=== PATIENT | male | born 1980 | race Hispanic/Latino ===

== ENCOUNTER 2017-02-10 15:29 | Emergency (ER) | payer BC ==
[2017-02-10] MEDS ORDERED: Oxycodone/Acetaminophen 5/325 mg Tab PO STA (16:25)
[2017-02-10 16:37] VITALS: RESP 18; O2SAT 99; BMI 22.3
[2017-02-10 17:03] LABS: URINE BILIRUBIN NEGATIVE (NEGATIVE); URINE BLOOD NEGATIVE (NEGATIVE); URINE COLOR Yellow (YELLOW); URINE GLUCOSE (UA) NORMAL (Normal); URINE KETONE NEGATIVE (NEGATIVE); URINE LEUKOCYTE ESTERASE NEG Leu/uL (Negative); URINE PROTEIN NEGATIVE (NEGATIVE); URINE UROBILINOGEN NORMAL mg/dL (0.2-1.0); WBC URINE < 1 /hpf (0-5)
--- NOTE | 2017-02-10 17:40 | RAD ---
HISTORY: pain COMPARISON: None available. TECHNIQUE: Chest PA and lateral FINDINGS: LUNGS: No focal consolidation. Please note that chest x-ray has limited sensitivity for the detection of pulmonary masses. PLEURA: No significant pleural effusion identified. No definite pneumothorax . CARDIOVASCULAR: The cardiomediastinal silhouette appears within normal limits of size. OSSEOUS STRUCTURES: Degenerative changes of the spine. Scoliosis. VISUALIZED UPPER ABDOMEN: Unremarkable. OTHER FINDINGS: None. IMPRESSION: No focal consolidation, significant pleural effusion, or definite pneumothorax identified.
--- NOTE | 2017-02-10 17:41 | RAD ---
PROCEDURE: Radiographs of the Lumbar Spine. HISTORY: pain COMPARISON: None available. FINDINGS: BONES: Curvature of the lumbar spine convex to the right. No listhesis. No acute displaced fracture identified. DISC SPACES: Unremarkable. OTHER FINDINGS: Moderate constipation. IMPRESSION: No acute displaced fracture or subluxation identified. Scoliosis. Moderate constipation.
--- NOTE | 2017-02-10 17:47 | C.PDOC ---
History Of Present Illness 36 y/o male presents to the ED with complains of left back pain which onset yesterday. Pain radiates down leg, worse with movement. Pt took advil, tylenol, and aleve without relief. Pt denies history of similar episodes in the past. Pt works as an environmental health specialist, notes lifting heavy objects frequently. Pt denies direct trauma, incontinence, hematuria, numbness, paraesthesia or any other complaints. (-) sob (-) chest pain Time Seen by Provider: 02/10/17 16:08 Chief Complaint (Nursing): Back Pain History Per: Patient History/Exam Limitations: no limitations Onset/Duration Of Symptoms: Hrs Current Symptoms Are (Timing): Still Present Quality Of Discomfort: "Pain" Severity: Moderate Associated Symptoms: None Exacerbating Factor(s): Movement Recent travel outside of the [place]: No Past Medical History Reviewed: Historical Data, Nursing Documentation, Vital Signs Vital Signs: Last Vital Signs Temp 97.6 F 02/10/17 17:54 Pulse 67 02/10/17 17:54 Resp 18 02/10/17 17:54 BP 113/73 02/10/17 17:54 Pulse Ox 99 02/10/17 18:50 Family History: States: Unknown Family Hx - Social History Hx Alcohol Use: No Hx Substance Use: No - Immunization History Hx Tetanus Toxoid Vaccination: Yes Hx Influenza Vaccination: No Hx Pneumococcal Vaccination: No Review Of Systems Except As Marked, All Systems Reviewed And Found Negative. Constitutional: Negative for: Fever Genitourinary: Negative for: Dysuria, Hematuria Musculoskeletal: Positive for: Back Pain. Negative for: Neck Pain Neurological: Negative for: Weakness, Numbness Physical Exam - Physical Exam Appears: Non-toxic, No Acute Distress Skin: Warm, Dry, No Rash Head: Atraumatic, Normacephalic Eye(s): bilateral: Normal Inspection, EOMI Nose: Normal Oral Mucosa: Moist Neck: Normal ROM, No Paracervical Tenderness, No Step Off Deformity, Supple Chest: Symmetrical Cardiovascular: Rhythm Regular Respiratory: Normal Breath Sounds Gastrointestinal/Abdominal: Soft, No Tenderness, No Distention, No Rebound Back: No CVA Tenderness, No Vertebral Tenderness, Paraspinal Tenderness (left lumbar tenderness , no midline) Extremity: Normal ROM Extremity: Bilateral: Atraumatic Neurological/Psych: Oriented x3, Normal Motor, Normal Sensation Gait: Steady ED Course And Treatment O2 Sat by Pulse Oximetry: 99 (on room air) Pulse Ox Interpretation: Normal Progress Note: On reassessment, patient is resting comfortably, with mild improvement of back pain, no fever, no bony tenderness, no numbness, no weakness , or abdominal pain. (-) saddle anesthia. Patient is ambulatory in the emergency department with no signs of discomfort. Patient was advised to follow up with their physician in 1-2 days. Disposition - Disposition Referrals: Pro Garcia MD [Staff Provider] - Disposition: HOME/ ROUTINE Disposition Time: 17:44 Condition: GOOD Additional Instructions: Follow up with primary medical doctor in 1-3 days without fail for further evaluation. Take medications as prescribed. Return to the emergency department at any time if symptoms persist or worsen. Prescriptions: Cyclobenzaprine [Cyclobenzaprine HCl] 10 mg PO TID #14 tab Naproxen [Naprosyn] 1 tab PO BID PRN #20 tab PRN Reason: Pain traMADol [Ultram] 50 mg PO Q8 #20 tab Instructions: Acute Low Back Pain (ED) - Clinical Impression Clinical Impression: Back pain - PA / PUBLICATIONS DISTRIBUTION CLERK / Resident Statement MD/DO has reviewed & agrees with the documentation as recorded. - Scribe Statement The provider has reviewed the documentation as recorded by the Joceline Childress All medical record entries made by the Joceline were at my direction and personally dictated by me. I have reviewed the chart and agree that the record accurately reflects my personal performance of the history, physical exam, medical decision making, and the department course for this patient. I have also personally directed, reviewed, and agree with the discharge instructions and disposition.
[2017-02-10 17:55] VITALS: BP 113/73; PULSE 67; TEMP 97.6
== END 2017-02-10 17:57 | disposition home or self-care (01) ==
LOC: C.ER 15:29
DX: M54.9 Dorsalgia, unspecified (principal)